=== PATIENT | female | born 1975 | race Caucasian/White ===

== ENCOUNTER 2019-12-13 08:33 | Emergency (ER) | payer OTHER, SELFPAY ==
[2019-12-13 08:52] VITALS: BP 145/81; PULSE 87; RESP 16; TEMP 37.4; O2SAT 100; BMI 27.6
--- NOTE | 2019-12-13 08:58 | ED.URI ---
HPI - URI/Sore Throat General Chief Complaint: General Medical Stated Complaint: FB IN THROAT Time Seen by Provider: 12/13/19 08:54 History of Present Illness HPI Narrative: patient reports 6 weeks of feeling pain and dryness in throat that is constant, has seen ENT and been on antibiotics, no relief with anything other than lidocaine, she also notes she was on the way to see ENT again today but came here because she couldn't take the pain, no associated symptoms, nothing worsens pain, only relief with lidocaine Related Data Allergies Allergy/AdvReac Type Severity Reaction Status Date / Time octopus Allergy Mild SWELLING Verified 12/13/19 09:09 Influenza Virus Vaccines Allergy Swelling Verified 12/13/19 09:02 Seafood Allergy Mild SWELLING Uncoded 11/28/19 16:40 Review of Systems Review of Systems: Constitutional : no Fever, no Chills ENT/Mouth : positive sore throat, no runny nose Eyes: No Discharge Cardiovascular : No Chest Pain, No SOB Respiratory : No Cough, No Sputum Gastrointestinal : No Nausea, No Vomiting, No Diarrhea Genitourinary : No Dysuria, No Urinary Frequency Musculoskeletal : positive Myalgia Skin : No rash Neuro : No Headache PMFSH Past Medical History Medical History Asthma Surgical History Hx of tonsillectomy Tubal ligation status Social History Social History Alcohol intake: never Smoking Status: Never smoker Use of substances other than those prescribed or required for medical reasons: No Advance Directives: No Advance Directives Information Provided: Yes Physical Exam Vital Signs and I&O and Narrative: Vital Signs and I&O: Vital Signs Temp 99.3 F 12/13/19 08:52 Pulse 87 12/13/19 08:52 Resp 16 12/13/19 08:52 BP 145/81 H 12/13/19 08:52 Pulse Ox 100 12/13/19 08:52 Intake & Output 12/13/19 12/14/19 12/14/19 18:59 06:59 18:59 Weight 75.189 kg Body Mass Index 27.6 Appearance: Alert. Oriented X3. No acute distress. Anxious Eyes: Pupils equal, round and reactive to light. ENT: Pharynx normal. Neck: Normal inspection. Neck supple. CVS: Normal heart rate and rhythm. Pulses normal. Respiratory: No respiratory distress. Breath sounds normal. Abdomen: Soft and nontender. Skin: Skin warm and dry. Normal skin color. Normal skin turgor. Extremities: No lower extremity edema. No lower extremity edema. Neuro: Oriented X 3. No motor deficit. No sensory deficit. Course Course Hospital Course: states she feels much better after the lidocaine, she is calling her ENT now, needs to follow up with them at this point MDM - URI/Sore Throat MDM Narrative Medical decision making narrative: patient with longstanding pain in neck states it is inflammed I don't know where. Has ENT appointment today, here for pain control, no change in pain, has had ENT scope and CT scan, not toxic, no airway involvement, pharynx exam is normal, will give viscous lidocaine as this is the only thing that treats her pain - instructed her to go to ENT today Discharge Plan Discharge Clinical Impression: Acute pain Patient Disposition: Home, Self-Care Instructions: Chronic Pain (ED) Additional Instructions: please follow up with your ENT appointment Interventions: ED Discharge Assessment Last Done: 12/13/19 10:07 Discharge Date/Time: 12/13/19 10:08
[2019-12-13] MEDS: Lidocaine HCl Viscous 2 % 15 ML SOLUTION MUCOUS MEM (09:11)
--- NOTE | 2019-12-13 09:18 | PC.NURSE ---
PT ALERT AND ORIENTED X4. SKIN WPD. RESPIRATIONS EVEN AND NON LABORED. LUNGS CTA. SPEAKING, HANDLING ORAL SECRETIONS WITH EASE. REPORTS 10/10 PAIN AND PRESSURE TO INSIDE OF THROAT, RADIATING TO BILATERAL EARS. PT STATES SHE HAS BEEN SEEN IN ER AND URGENT CARE MANY TIME OVER LAST6 WEEKS FOR THIS ISSUE AND HAS BEEN REFERRED TO ENT THROUGH [facility]. PT WAS ON WAY TO APPT WITH ENT THIS MORNING, BUT DECIDED TO COME TO THIS ED INSTEAD BECAUSE PAIN WAS TOO MUCH. PT NOW CALLING ENT OFFICE TO RESCHEDULE, POSSIBLY FOR LATER TODAY, PER / JEREMY'S REQUEST.
== END 2019-12-13 10:08 | disposition home or self-care (01) ==
PROVIDERS: Emergency Provider Emergency Medicine; PCP Hospitalist
DX: J02.9 Acute pharyngitis, unspecified (principal)
CPT/HCPCS: 99283; 99284

== ENCOUNTER 2019-12-18 12:05 | Outpatient (REF) | payer OTHER, SELFPAY ==
[2019-12-18 13:52] LABS: MANUAL DIFF FLAG NO
[2019-12-18 13:55] LABS: Eosinophils Absolute Auto 0.1 X10*3/uL (0.0-0.4); Hematocrit 38.4 % (37-47); Hemoglobin 12.4 g/dl (12.0-16.0); Lymphocytes Absolute Auto 1.5 X10*3/uL (1.2-4.9); Lymphocytes Percent Auto 48.7 % (20-40); Mean Corpuscular HGB Conc 32.3 g/dl (31.0-35.0); Monocytes Absolute Auto 0.3 X10*3/uL (0.1-1.2); Monocytes Percent Auto 10.6 % (2-11); Neutrophils Absolute Auto 1.1 X10*3/uL (2.0-8.3); Neutrophils Percent Auto 37.7 % (45-73); Platelet Count 180 X10*3/uL (160-400); Red Blood Count 4.13 X10*6/uL (4.20-5.50); Red Cell Distribution Width 12.7 % (11.0-16.0)
[2019-12-18 14:41] LABS: Erythrocyte Sedimentation Rate 3 MM/HR (0-20)
[2019-12-18 14:43] LABS: Alanine Aminotransferase 27 U/L (0-31); Albumin Level 4.2 g/dL (3.5-5.0); Alkaline Phosphatase 60 U/L (39-117); Anion Gap 12 (12-20); Aspartate Amino Transferase 20 U/L (5-31); Bilirubin Total 0.4 mg/dL (0.0-1.0); Blood Urea Nitrogen 9 mg/dL (9-16); C Reactive Protein 0.04 mg/dL (< or = 0.50); Calcium 9.4 mg/dL (8.4-10.2); Carbon Dioxide 26 mmol/L (22-29); Chloride 107 mmol/L (96-108); Estimated Glomerular Filt Rate > 60; Glucose Random 89 mg/dL (60-115); Potassium 4.6 mmol/l (3.3-5.1); Sodium 140 mmol/L (135-145); Total Protein 6.7 g/dL (6.5-8.0)
[2019-12-19 07:16] LABS: Triiodothyronine T3 Total 72 ng/dL (76-181)
== END 2019-12-18 12:06 | disposition home or self-care (01) ==
LOC: HO.LAB 12:05
PROVIDERS: PCP Hospitalist; Visit Provider Internal Medicine Endocrinology, Diabetes & Metabolism
DX: E04.1 Nontoxic single thyroid nodule (principal); M54.2 Cervicalgia
CPT/HCPCS: 36415; 80050; 80053; 84439; 84443; 84480; 85025; 85652; 86140

== ENCOUNTER 2019-12-25 | Outpatient (REF) | payer OTHER, SELFPAY | END 2019-12-25 00:01 | disposition home or self-care (01) | LOC: HO.LNP | PROVIDERS: Visit Provider Internal Medicine | DX: Z13.89 Encounter for screening for other disorder (principal) ==

== ENCOUNTER → 2019-12-25 | Outpatient (BNVA) | payer OTHER, SELFPAY | PROVIDERS: PCP Hospitalist; Visit Provider Internal Medicine | DX: R10.13 Epigastric pain (principal); R50.9 Fever, unspecified; R63.4 Abnormal weight loss; M54.2 Cervicalgia; E04.1 Nontoxic single thyroid nodule | CPT/HCPCS: 36415 ==

== ENCOUNTER 2019-12-29 10:47 | Emergency (ER) | payer SELFPAY ==
[2019-12-29 10:54] VITALS: BP 132/79; PULSE 81; RESP 14; TEMP 36.6; O2SAT 100; BMI 23.6
--- NOTE | 2019-12-29 11:21 | ED_ITS ---
HPI - General Adult General Chief complaint: General Medical Stated complaint: constipation Time Seen by Provider: 12/29/19 13:20 Source: patient Mode of arrival: ambulatory Limitations: no limitations History of Present Illness HPI narrative: patient presents to ED for constipation. Patient states inability to pass bowel for the past 4 days. Patient denies any nausea or vomiting. Patient states slight liquid coming from rectum when straining in the bathroom. Patient states no relief with the enema, laxatives, or drinking water. Patient denies any weight loss or abdominal pain Onset (ago): day(s) (4 days) Related Data Home Medications Medication Instructions Recorded Confirmed diclofenac potassium 50 mg tablet 50 mg PO TID PRN 12/18/19 12/25/19 acetaminophen 325 mg capsule 325 mg PO QID PRN 12/25/19 12/25/19 Previous Rx's Medication Instructions Recorded lactulose 20 g PO DAILY 3 Days #90 ml 12/29/19 Allergies Allergy/AdvReac Type Severity Reaction Status Date / Time octopus Allergy Mild SWELLING Verified 12/25/19 10:14 Influenza Virus Vaccines Allergy Swelling Verified 12/25/19 10:14 Seafood Allergy Mild SWELLING Uncoded 11/28/19 16:40 Review of Systems Review of Systems: Yes all other systems are reviewed and are negative Constitutional: Constitutional: Reports as per HPI and Reports no additional constitutional complaints Eyes: Eyes: Reports as per HPI and Reports no additional eye complaints ENT: Reports system reviewed and no additional complaints, except as documented and Reports as per HPI Cardiovascular: Cardiovascular: Reports as per HPI and Reports no additional cardiovascular complaints Respiratory: Respiratory: Reports as per HPI and Reports no additional respiratory complaints Gastrointestinal: Gastrointestinal: Reports as per HPI, Reports no additional gastrointestinal complaints and Reports constipation Neurologic: Reports system reviewed and no additional complaints, except as documented and Reports as per HPI Psychiatric: Psychiatric: Reports no additional psychiatric complaints and Reports as per HPI [facility] Past Medical History Medical History (Updated 12/29/19 @ 13:38 by SACHIN Marshall) Abdominal discomfort Asthma Febrile illness Uninodular goiter Surgical History Hx of tonsillectomy Tubal ligation status Family History Family History Father Heart disease Mother Heart disease Diabetes Hypertension High cholesterol Social History Social History Alcohol intake: never Smoking Status: Never smoker Advance Directives: No Advance Directives Information Provided: No Physical Exam Vital Signs: Vital Signs: Vital Signs Temp Pulse Resp BP Pulse Ox 12/29/19 10:54 97.9 F 81 14 132/79 100 Body Mass Index 23.6 Const: General: cooperative, healthy appearing, comfortable, no acute distress and well developed HENMT: Head: Yes normal to inspection Eyes: General: appearance normal, both eyes and all related structures Neck: Neck: Yes normal visual inspection, Yes full ROM, Yes no lymphadenopathy and Yes no meningeal signs Chest: Chest palpation & inspection: normal inspection of the chest and normal palpation of entire chest wall Resp: Effort & Inspection: normal respiratory effort, able to speak in complete sentences, normal respiratory pattern, no audible wheezes, no cough, no grunting, not labored, no nasal flaring and no paradoxical thoraco-abdom movements Cardio: Jugular venous distension: no JVD Heart sounds: S1 normal heart sound present and S2 normal heart sound present GI: Inspection: Yes normal to inspection, No abdominal wall ecchymosis and No distended Palpation (GI): not firm, nontender, no guarding and not rigid Percussion: Yes normal to percussion Auscultation: normal bowel sounds Neuro: General: no meningeal signs Course Course Course Narrative: History physical exam indicate constipation. Patient will be sent for abdominal KUB to rule out a small-bowel obstruction. Patient's x- ray give urine to make sure she is not , but patient refused and said it is impossible that she is . Patient states she has too tight. Once again patient refused to give urine Reevaluation(s) Reevaluation #1: Patient x-ray shows constipation with stool in rectum and sigmoid colon. X-ray negative for bowel obstruction. Fecal disimpaction was done. Also Fleet enema. Patient given magnesium citrate in the ED. Patient will be discharged with lactulose for constipation. Time: 13:36 Medical Decision Making [facility] Narrative Medical decision making narrative: Constipation. Xray negative for constipation. Discharge Plan Discharge Clinical Impression: Constipation Qualifiers: Constipation type: unspecified constipation type Qualified Code(s): K59.00 - Constipation, unspecified Patient Disposition: Home, Self-Care Instructions: Constipation (ED) Prescriptions: New lactulose 10 gram/15 mL solution 20 g PO DAILY 3 Days Qty: 90 RF: 0 No Action diclofenac potassium 50 mg tablet 50 mg PO TID PRN (Reason: pain) RF: 0 acetaminophen [Tylenol] 325 mg capsule 325 mg PO QID PRNRF: 0 Referrals: Gordon Hernandes [Primary Care Provider] - 2 days (Constipation) Stand Alone Forms: Work/School Release Interventions: ED Discharge Assessment Last Done: 12/29/19 13:57 Discharge Date/Time: 12/29/19 14:00
--- NOTE | 2019-12-29 11:21 | XR_ITS ---
EXAMINATION: XR ABDOMEN KUB CLINICAL INDICATION: Constipation. Question abdominal obstruction. COMPARISON: None TECHNIQUE: 2 views of the abdomen. FINDINGS: There is gas and stool throughout the large colon, extending to the rectum with prominent fecal matter in the rectal region and sigmoid colon. Mild prominence of the transverse colon. No dilated small bowel loops is seen. No gross free air is seen. Phlebolith in the left pelvis. IMPRESSION: Prominent fecal matter in the sigmoid region and rectum correlating with the clinical history of constipation. Mild prominence of the transverse colon. Clinically correlate. Follow-up imaging for reassessment as clinically warranted.
[2019-12-29] MEDS: Mineral OiL enema 133 ML ENEMA PR (12:48)
[2019-12-29] MEDS: Magnesium Citrate 300 ML SOLUTION PO (12:48)
== END 2019-12-29 14:00 | disposition home or self-care (01) ==
PROVIDERS: Emergency Provider Emergency Medicine; PCP Hospitalist
DX: K59.00 Constipation, unspecified (principal)
CPT/HCPCS: 74018; 99283

== ENCOUNTER 2019-12-29 15:09 | Emergency (ER) | payer SELFPAY ==
--- NOTE | 2019-12-29 | ECG_ITS ---
Test Reason : NEAR SYNCOPEE Blood Pressure : / mmHG Vent. Rate : 066 BPM Atrial Rate : 066 BPM P-R Int : 108 ms QRS Dur : 086 ms QT Int : 428 ms P-R-T Axes : 048 069 049 degrees QTc Int : 448 ms Sinus rhythm with short KS Otherwise normal ECG No previous ECGs available Referred By: Thomas Duarte Electronically Signed By:CHRISTIANNE CASAREZ MD
[2019-12-29 15:24] VITALS: BP 128/77; BP 132/76; PULSE 68; PULSE 76; RESP 16; TEMP 36.4; O2SAT 100; O2SAT 98; BMI 23.1
[2019-12-29 16:00] VITALS: BP 113/70; PULSE 79; RESP 20; TEMP 36.8
--- NOTE | 2019-12-29 16:05 | ED_ITS ---
HPI - Dizziness General Chief Complaint: Dizziness Stated Complaint: syncope Time Seen by Provider: 12/29/19 15:54 Source: EMS Mode of arrival: EMS Limitations: no limitations History of Present Illness HPI Narrative: Patient tells me she was seen here earlier today for constipation and fecal impaction. She was given a Fleet enema and a bottle of magnesium citrate here in the emergency department. She did have a fecal disimpaction and was discharged home with family. She tells me she did not eat or drink anything today when she got home she was in the hot shower and felt lightheaded. She then felt like she needs to move her bowels and sat down on the toilet and tells me she felt very lightheaded and that her told her she passed out. She does not have any memory of this. There was no inconti nence or seizure activity. On arrival the patient is alert and oriented. She denies dizziness or lightheadedness at this time. No chest pain or palpitation prior to event. She denies any abdominal pain. of note, the patient is currently being worked up for weight loss, recent febrile illness, dyspepsia. She is currently being worked up by infectious disease and has labs, imaging pending. She is also been seen by ENT and her primary care doctor. MD elicited complaint: lightheadedness Onset (ago): minute(s) Timing: episodic Severity: mild Context: other History of similar symptoms: No Exacerbating factors: other ( moving her bowels) Associated symptoms: denies other symptoms Related Data Home Medications Medication Instructions Recorded Confirmed diclofenac potassium 50 mg tablet 50 mg PO TID PRN 12/18/19 12/25/19 acetaminophen 325 mg capsule 325 mg PO QID PRN 12/25/19 12/25/19 Previous Rx's Medication Instructions Recorded lactulose 20 g PO DAILY 3 Days #90 ml 12/29/19 Allergies Allergy/AdvReac Type Severity Reaction Status Date / Time octopus Allergy Mild SWELLING Verified 12/25/19 10:14 Influenza Virus Vaccines Allergy Swelling Verified 12/25/19 10:14 Seafood Allergy Mild SWELLING Uncoded 11/28/19 16:40 Review of Systems Review of Systems: Yes all other systems are reviewed and are negative Constitutional: Constitutional: Reports no additional constitutional complaints, Denies body ache(s), Denies chills, Denies fever(s), Denies headache(s) and Denies weakness Eyes: Eyes: Reports no additional eye complaints and Denies change in vision ENT: Reports system reviewed and no additional complaints, except as documented, Reports dizziness, Denies headache(s), Denies nasal congestion, Denies nasal discharge and Denies neck pain Cardiovascular: Cardiovascular: Reports no additional cardiovascular complaints, Denies chest pain, Reports syncope, Denies leg edema and Denies dyspnea Respiratory: Respiratory: Reports no additional respiratory complaints, Denies cough and Denies dyspnea Gastrointestinal: Gastrointestinal: Reports no additional gastrointestinal complaints, Denies abdominal pain, Denies diarrhea, Denies nausea and Denies vomiting Genitourinary: Genitourinary: Reports no additional female genitourinary complaints and Denies urinary incontinence Musculoskeletal: Musculoskeletal: Reports no additional musculoskeletal complaints, Denies back pain, Denies arthralgias, Denies joint swelling, Denies neck pain, Denies numbness and Denies tingling Integumentary/Breasts: Skin/Breast: Reports system reviewed and no additional complaints, except as docu and Denies rash Neurologic: Reports system reviewed and no additional complaints, except as documented, Denies Abnormal speech present, Reports dizziness, Reports syncope, Denies headache(s), Denies numbness, Denies tingling and Denies weakness PMFSH Past Medical History Attestation statement: The following information was validated with the patient. Source: old records reviewed and nursing notes reviewed Medical History Abdominal discomfort Asthma Febrile illness Uninodular goiter Surgical History Hx of tonsillectomy Tubal ligation status Family History Family History Father Heart disease Mother Heart disease Diabetes Hypertension High cholesterol Social History Social History Alcohol intake: never Smoking Status: Never smoker Advance Directives: No Advance Directives Information Provided: No Physical Exam Vital Signs: Vital Signs: Vital Signs Temp Pulse Resp BP Pulse Ox 12/29/19 16:20 97 101/66 12/29/19 16:19 80 105/67 12/29/19 16:09 75 103/65 12/29/19 16:00 98.3 F 79 20 113/70 12/29/19 15:24 97.6 F 68 16 128/77 100 Body Mass Index 23.1 Const: General: cooperative, healthy appearing, comfortable and no acute distress Orientation/consciousness: patient oriented x3 Limitations: no limitations HENMT: Head: Yes normal to inspection Ears: hearing grossly normal bilaterally General nose exam: Normal external nose present Face and sinus: Yes normal facial exam Mouth: Normal oral and palatal mucosa present Throat: Yes posterior oropharynx normal Eyes: General: appearance normal, both eyes and all related structures Pupils: Equal, round and reactive pupils present Neck: Neck: Yes normal visual inspection Chest: Chest palpation & inspection: normal inspection of the chest Resp: Effort & Inspection: normal respiratory effort Auscultation: clear to auscultation bilaterally Cardio: Rate: regular rate Rhythm: regular rhythm Peripheral pulses: Peripheral pulses 2+ throughout GI: Inspection: Yes normal to inspection Palpation (GI): Soft to palpation and nontender Auscultation: normal bowel sounds Back/Spine/Pelvis: Thoracic/Lumbar Spine: thoracic and lumbar spine normal to inspection Skin: General skin exam: no rashes or lesions noted Neuro: General: patient oriented x3, no focal motor deficits and normal sensation to monofilament Cranial nerves: Yes CN's II-XII intact bilaterally and Yes Equal, round and reactive pupils present Cognition (Neuro): normal cognition Speech: No Abnormal speech present Gait exam (Neuro): Normal gait present Motor exam (neuro): 5/5 motor strength present throughout Sensory Exam: Normal double simultaneous stimulation for sensation Coordination: [id number] test normal and [id number] test normal Extrem: General: Yes normal to inspection Course Course Course Narrative: 44-year-old female here with what sounds like a vasovagal syn copal episode while moving her bowels just prior to arrival. On arrival to the ER she is alert and oriented. Neurologically intact. Stable vital signs. She is telling me she feels improved. Will check EKG, orthostatics and POC sugar. 1700- Orthostatics show a mild increase in heart rate. I did discuss with the patient that we could place the IV and give her fluids but she declined this. She would like to do oral hydration at home. Sugar stable. EKG unremarkable. Patient is feeling improved. Likely vasovagal syncope. Reviewed worrisome signs and symptoms and when to return to the emergency department. Comfortable discharge home. MDM - Dizziness MDM Narrative Medical decision making narrative: Consider vasovagal syncope, arrhythmia, orthostatic hypotension, hypoglycemia, SAH History of present illness more consistent with vasovagal syncope. Less likely arrhythmia with unremarkable EKG and monitor here on tele for brief time with no arrhythmias noted. Not likely orthostatic hypertension with stable blood pressure. Blood sugar is stable so less likely hypoglycemia. no neurological deficits and no hypertension with no headaches less likely SAH Lab Data Labs: Lab Results 12/29/19 Range/Units 16:07 POC Glucose 105 (60-115) mg/dL ECG Data Attestation: I personally reviewed and interpreted this ECG as follows: ECG interpretation date: 12/29/19 ECG interpretation time: 15:50 Interpretation: sinus rhythm with short p.r. 108, normal QRS. Normal QT. Normal ST segment Discharge Plan Discharge Clinical Impression: Syncope Qualifiers: Syncope type: vasovagal syncope Qualified Code(s): R55 - Syncope and collapse Patient Disposition: Home, Self-Care Instructions: Syncope (ED) Additional Instructions: Change positions slowly Drink plenty of fluids Follow-up with your PCP Prescriptions: No Action lactulose 10 gram/15 mL solution 20 g PO DAILY 3 Days Qty: 90 RF: 0 diclofenac potassium 50 mg tablet 50 mg PO TID PRN (Reason: pain) RF: 0 acetaminophen [Tylenol] 325 mg capsule 325 mg PO QID PRNRF: 0 Referrals: Physician,Unknown [Primary Care Provider] - 2 days Interventions: ED Discharge Assessment Last Done: 12/29/19 17:28 Discharge Date/Time: 12/29/19 17:31
[2019-12-29 16:09] VITALS: BP 103/65; PULSE 75
[2019-12-29 16:13] LABS: Glucose, Whole Blood 105 mg/dL (60-115)
[2019-12-29 16:19] VITALS: BP 105/67; PULSE 80
[2019-12-29 16:20] VITALS: BP 101/66; PULSE 97
== END 2019-12-29 17:31 | disposition home or self-care (01) ==
PROVIDERS: Emergency Provider Emergency Medicine
DX: R55 Syncope and collapse (principal)
CPT/HCPCS: 82947; 93005; 99283; 99284

== ENCOUNTER 2020-01-06 08:27 | Outpatient (REF) | payer OTHER, SELFPAY ==
--- NOTE | 2020-01-06 08:31 | US_ITS ---
EXAMINATION: US ABDOMEN COMPLETE CLINICAL INFORMATION: Unspecified abdominal pain. COMPARISON: KUB 12/29/2019 TECHNIQUE: Real-time imaging of the abdominal viscera. FINDINGS: PANCREAS: Normal. ABDOMINAL AORTA: The proximal, mid, and distal segments are normal in caliber. INFERIOR VENA CAVA: Visualized portions are normal. LIVER: Normal. The liver is normal in size. The liver contour is normal. Parenchymal echogenicity is normal. No focal hepatic lesion. There is no intrahepatic biliary duct dilatation seen. GALLBLADDER: Normal. The gallbladder is physiologically distended without evidence of stones, sludge, polyps, wall thickening or pericholecystic fluid. COMMON BILE DUCT: Normal in caliber measuring 0.5 cm in diameter. RIGHT KIDNEY: Normal. No hydronephrosis. No renal calculi or focal parenchymal lesions. The kidney measures 9.7 cm in maximum dimension. LEFT KIDNEY: Normal. No hydronephrosis. No renal calculi or focal parenchymal lesions. The kidney measures 10.0 cm in maximum dimension. SPLEEN: Suboptimally visualized. The spleen measures 6.4 cm in maximum dimension. FREE FLUID: None. US/US abdomen complete IMPRESSION: 1. Unremarkable complete abdomen ultrasound. 2. Spleen was not optimally visualized.
== END 2020-01-06 08:28 | disposition home or self-care (01) ==
LOC: HO.US 08:27
PROVIDERS: PCP Hospitalist; Visit Provider Internal Medicine
DX: R10.9 Unspecified abdominal pain (principal)
CPT/HCPCS: 76700

== ENCOUNTER 2020-01-29 01:59 | Emergency (ER) | payer OTHER, SELFPAY ==
[2020-01-29 02:03] VITALS: BP 125/82; PULSE 82; RESP 18; TEMP 37.6; O2SAT 100
[2020-01-29 02:28] VITALS: BP 124/83; PULSE 79; RESP 18; TEMP 36.8; O2SAT 100; BMI 20.5
[2020-01-29] MEDS: LORazepam 1 MG TABLET PO (02:46)
--- NOTE | 2020-01-29 03:14 | PC.NURSE ---
pt resting in bed, feels better following ativan. pt able to swallow tablet and water without coughing or choking.
--- NOTE | 2020-01-29 03:15 | ED_ITS ---
HPI - General Adult General Chief complaint: General Medical Stated complaint: Sob/Difficulty swallowing Time Seen by Provider: 01/29/20 02:35 Source: patient Mode of arrival: ambulatory Limitations: no limitations History of Present Illness HPI narrative: Patient with throat pain for last 3 months seen at [facility] last week endoscopy was normal patient feels spasm in the throat muscles whenever she eat or swallow was told by specialist at [facility] to follow up with primary care doctor or ENT patient feels very anxious and feels throat is closing whenever she tried to eat something Onset (ago): month(s) (3) Related Data Home Medications Medication Instructions Recorded Confirmed diclofenac potassium 50 mg tablet 50 mg PO TID PRN 12/18/19 12/25/19 acetaminophen 325 mg capsule 325 mg PO QID PRN 12/25/19 12/25/19 Previous Rx's Medication Instructions Recorded lactulose 20 g PO DAILY 3 Days #90 ml 12/29/19 lorazepam [Ativan] 1 mg PO BID PRN #14 tab 01/29/20 Allergies Allergy/AdvReac Type Severity Reaction Status Date / Time octopus Allergy Mild SWELLING Verified 01/29/20 02:27 Influenza Virus Vaccines Allergy Swelling Verified 01/29/20 02:27 Seafood Allergy Mild SWELLING Uncoded 11/28/19 16:40 Review of Systems Review of Systems: REVIEW OF SYSTEMS: Pertinent positives and negatives are stated above in the history. GEN: no fevers, chills, fatigue HEENT: no nasal congestion, sore throat, ear pain NEURO: no headache, dizziness, focal weakness PULM: no cough, shortness of breath CV: no chest pain, palpitations, LE edema ABD: no abdominal pain, nausea, vomiting, diarrhea : no dysuria, urgency, frequency SKIN: no rash ROS otherwise negative x 10 [facility] Past Medical History Medical History Abdominal discomfort Asthma Febrile illness Uninodular goiter Surgical History Hx of tonsillectomy Tubal ligation status Family History Family History Father Heart disease Mother Heart disease Diabetes Hypertension High cholesterol Social History Social History Alcohol intake: never Smoking Status: Never smoker Advance Directives: No Advance Directives Information Provided: No Physical Exam Vital Signs: Vital Signs: Last Vital Signs Temp 98.3 F 01/29/20 02:28 Pulse 79 01/29/20 02:28 Resp 18 01/29/20 02:28 BP 124/83 01/29/20 02:28 Pulse Ox 100 01/29/20 02:28 Body Mass Index 20.5 Appearance: Alert. Oriented X3. No acute distress. Anxious Eyes: Pupils equal, round and reactive to light. ENT: Pharynx normal. Slight tenderness left side of throat no stridor Neck: Normal inspection. Neck supple. CVS: Normal heart rate and rhythm. Pulses normal. Respiratory: No respiratory distress. Breath sounds normal. Abdomen: Soft and nontender. Skin: Skin warm and dry. Normal skin color. Normal skin turgor. Extremities: No lower extremity edema. Good range of movement Neuro: Oriented X 3. No motor deficit. No sensory deficit. Course Course Course Narrative: Patient's symptoms likely from globus hystericus no pathological findings per [facility] specialist patient received Ativan in the ER and start feeling better will discharge her home on Ativan Discharge Plan Discharge Clinical Impression: Globus hystericus Patient Disposition: Home, Self-Care Instructions: Neck Pain (ED) Additional Instructions: His symptoms likely from anxiety with muscle spasm take medication as prescribed and follow-up with your primary care doctor Prescriptions: New lorazepam [Ativan] 1 mg tablet 1 mg PO BID PRN (Reason: anxiety) Qty: 14 RF: 0 No Action lactulose 10 gram/15 mL solution 20 g PO DAILY 3 Days Qty: 90 RF: 0 diclofenac potassium 50 mg tablet 50 mg PO TID PRN (Reason: pain) RF: 0 acetaminophen [Tylenol] 325 mg capsule 325 mg PO QID PRNRF: 0 Interventions: ED Discharge Assessment Last Done: 01/29/20 03:42 Discharge Date/Time: 01/29/20 03:44
== END 2020-01-29 03:44 | disposition home or self-care (01) ==
PROVIDERS: Emergency Provider Internal Medicine; PCP Family Medicine
DX: R13.10 Dysphagia, unspecified (principal); R06.02 Shortness of breath; I10 Essential (primary) hypertension; Z79.899 Other long term (current) drug therapy
CPT/HCPCS: 99283